=== PATIENT | male | born 1985 | race Caucasian/White ===

== ENCOUNTER 2018-03-11 10:38 | Emergency (ER) | payer OTHER ==
--- NOTE | 2018-03-11 10:55 | EDPHY ---
H & P Time Seen by Provider: 03/11/18 10:54 Constitutional: Initial Vital Signs Temperature (C) 36.6 C 03/11/18 10:51 Heart Rate 85 03/11/18 10:51 Respiratory Rate 16 03/11/18 10:51 Blood Pressure 133/90 H 03/11/18 10:51 O2 Sat (%) 96 03/11/18 10:51 O2 Delivery Mode Room Air Allergies/Adverse Reactions: No Known Allergies Allergy (Unverified 03/11/18 10:50) Home Medications: Medication Instructions Recorded Famotidine [Pepcid 20 MG (OTC)] 20 mg PO DAILY #5 tab 03/11/18 HYDROcodone/APAP 10/325 [Steen 1 - 2 each PO Q4-6PRN PRN #20 tab 03/11/18 10/325] Pantoprazole Sodium [Protonix] 40 mg PO DAILY #30 tablet. 03/11/18 Medical Decision Making ED Course/Re-evaluation: CHIEF COMPLAINT: Epigastric pain HISTORY OF PRESENT ILLNESS: This patient is a healthy 32 year old male who presents with epigastric pain ongoing for the past month. He states "I feel like its an ulcer". His discomfort has worsened since onset and is now waking him up at night, particularly over the past three days. This is now causing him to breath more shallowly due to the painful sensation in his epigastric region, and he feels he can breathe more easily with his arms over his head. His symptoms have been unrelieved with Tums or Pepto-Bismol. He has not tried any PPI or H2 ena medications. He denies any blood in his stool. No fever, vomiting, diarrhea, chest pain, headache, lightheadedness or other associated symptoms. REVIEW OF SYSTEMS: A comprehensive 10 system review of systems is otherwise negative aside from elements mentioned in the history of present illness and medical decision making. PHYSICAL EXAM: HR, BP, O2 Sat, RR. Temp noted General Appearance: Alert, well hydrated, appropriate, and non-toxic appearing. Head: Atraumatic without scalp tenderness or obvious injury Eyes: Pupils equal, round, reactive to light and accommodation, EOMI, no trauma , no injection. Ears: Clear bilaterally, no perforation, normal landmarks Nose: Atraumatic, no rhinorrhea, clear. Throat: There is no erythema or exudates, no lesions, normal tonsils, mucus membranes moist. Neck: Supple, 2+ carotid upstroke, nontender, no lymphadenopathy. Respiratory: No retractions, no distress, no wheezes, and no accessory muscle use. Lungs are clear to auscultation bilaterally. Cardiovascular: Regular rate and rhythm, no murmurs, rubs, or gallops. Bilateral carotid, radial, dorsalis pedis, and posterior tibial pulses intact. Good capillary refill all extremities. Gastrointestinal: Epigastric tenderness. Abdomen is soft, non-distended, no masses, no rebound, no guarding, no peritoneal signs. Musculoskeletal: Normal active ROM of all extremities, atraumatic. Neurological: Alert, appropriate, and interactive. The patient has normal DTRs and non-focal cranial nerves, motor, sensory, and cerebellar exam. Skin: No rashes, good turgor, no nodules on palpation. Past medical history: Denies Past surgical history: Denies Family history: Noncontributory. Social history: Lives in [place]. Self employed. Does not abuse tobacco, drgs, or alcohol. DIFFERENTIAL DIAGNOSIS: The differential diagnosis for the patient's abdominal pain included but was not limited to gastritis, gastric ulcer, appendicitis, cholecystitis, pancreatitis, hernias. MEDICAL DECISION MAKIN32 year old male presents with epigastric pain worsening for one month. Epigastric tenderness on exam. Plan to administer GI cocktail for symptom relief. I do not suspect any cardiac etiology of symptoms at this time given patient's history and exam. Reassessed. Patient feels well after GI cocktail. Plan to discharge home in good condition with prescription for Pepcid and Protonix. Prescription for Steen provided for severe pain. Referral to gastroenterology provided. Follow up and return precautions discussed. The patient is comfortable with this plan. - Data Points Medications Given: Discontinued Medications Al Hydroxide/Mg Hydroxide (Maalox Susp) 30 ml PO ONCE ONE Stop: 03/11/18 11:02 Last Admin: 03/11/18 11:04 Dose: 30 ml Hyoscyamine Sulfate (Levsin, Hyomax-Sl) 0.25 mg PO ONCE ONE Stop: 03/11/18 11:02 Last Admin: 03/11/18 11:04 Dose: 0.25 mg Lidocaine (Lidocaine 2% Viscous) 15 ml PO ONCE ONE Stop: 03/11/18 11:02 Last Admin: 03/11/18 11:04 Dose: 15 ml Departure - Departure Disposition: Home, Routine, Self-Care Clinical Impression: Gastric ulcer Qualifiers: Gastric ulcer chronicity: acute Gastric ulcer complication status: unspecified whether hemorrhage or perforation present Qualified Code(s): K25.3 - Acute gastric ulcer without hemorrhage or perforation Gastritis Qualifiers: Gastritis type: unspecified gastritis Chronicity: acute Gastritis bleeding: without bleeding Qualified Code(s): K29.00 - Acute gastritis without bleeding Condition: Good Instructions: Peptic Ulcer (ED), Gastritis (ED), Diet for Stomach Ulcers and Gastritis (ED) Additional Instructions: Take Pepcid as prescribed for the next five days. Take Protonix as prescribed. Take Steen as prescribed as needed for severe pain. Follow up with gastroenterology for further evaluation. Call today for an appointment, preferably in the next week. Return to the emergency department for worsening pain, vomiting, diarrhea, blood in your vomit or stool, fever, or other worsening of condition. Referrals: Vazquez Green MD [Medical Doctor] - As per Instructions Prescriptions: Famotidine [Pepcid 20 MG (OTC)] 20 mg PO DAILY #5 tab HYDROcodone/APAP 10/325 [Steen 10/325] 1 - 2 each PO Q4-6PRN PRN #20 tab PRN Reason: Pain, Moderate Pantoprazole Sodium [Protonix] 40 mg PO DAILY #30 tablet. Report Scribed for: Rai Baum Report Scribed by: Susanne Otoole Date of Report: 03/11/18 Time of Report: 10:59
[2018-03-11] MEDS ORDERED: LIDOCAINE 2% VISCOUS 15 ML UDCUP PO ONE (11:01)
[2018-03-11] MEDS ORDERED: MAG HYDROX/AL HYDROX/SIMETH 30 ML UDCUP PO ONE (11:01)
[2018-03-11] MEDS ORDERED: HYOSCYAMINE SULFATE 0.125 MG TAB PO ONE (11:01)
[2018-03-11 11:35] VITALS: BP 135/85
== END 2018-03-11 11:33 | disposition home or self-care (01) ==
DX: K25.3 Acute gastric ulcer without hemorrhage or perforation (principal)

== ENCOUNTER 2018-08-10 12:12 | Emergency (ER) | payer OTHER | END 2018-08-10 15:39 | disposition home or self-care (01) ==